=== PATIENT | male | born 1955 | race Caucasian/White ===

== ENCOUNTER 2018-09-24 09:51 | Outpatient (RCR) ==
[2018-09-03 09:09] VITALS: BMI 30.8
[2018-10-21 11:00] VITALS: BP 138/54
== END 2018-10-24 23:59 ==
LOC: CAR.REHAB 09:51
PROVIDERS: ATTEND Thoracic Surgery (Cardiothoracic Vascular Surgery)
DX: I21.4 Non-ST elevation (NSTEMI) myocardial infarction (principal); I25.110 Atherosclerotic heart disease of native coronary artery with unstable angina pectoris
CPT/HCPCS: 93798